=== PATIENT | female | born 1970 | race Caucasian/White ===

== ENCOUNTER 2020-02-04 14:50 | Emergency (ER) | payer BC ==
[2020-02-04] MEDS ORDERED: LIDOCAINE 1% W/ EPINEPHRINE 20 ML VIAL INJ ONE (14:58)
--- NOTE | 2020-02-04 14:59 | ED.PDOC ---
History of Present Illness - General Time Seen by Provider: 02/04/20 14:55 Source: patient Exam Limitations: no limitations - History of Present Illness Initial Comments: Pt says she was helping someone get onto a surf board and the board hit her in the upper lip. Pt had no LOC. Pt denies LUZ, N/V, neck pain. Pt denies numbness, tingling or weakness in face or extremities. Timing/Duration: abrupt Severity: mild, moderate EENT Location: mouth Prearrival Treatment: no prearrival treatment Presenting Symptoms: upper lip pain Worsening Factors: nothing Associated Symptoms: denies symptoms Allergies/Adverse Reactions: Allergies NO KNOWN ALLERGY Allergy (Verified 02/04/20 15:30) Home Medications: Ambulatory Orders Irbesartan 150 mg PO DAILY 02/04/20 Review of Systems - Review of Systems Constitutional: States: no symptoms reported. Denies: diaphoresis, fever, malaise, weakness EENTM: States: mouth pain, mouth swelling. Denies: eye pain, blurred vision, tearing, double vision, ear pain, ear discharge, nose pain, nose congestion, throat pain, throat swelling Respiratory: States: no symptoms reported. Denies: cough, short of breath, stridor, wheezing Cardiology: States: no symptoms reported. Denies: chest pain, palpitations, syncope Genitourinary: States: no symptoms reported Musculoskeletal: States: no symptoms reported Skin: States: no symptoms reported Neurological: States: no symptoms reported Family Medical History - Family History Mother Family History: Unknown Living Status: Unknown Physical Exam - Physical Exam General Appearance: Alert, Comfortable, No apparent distress Eye Exam: bilateral normal Nasal Exam: normal inspection Throat Exam: dental tenderness, other - 1 cm upper lip laceration. Dentition intact. Speech nl, swallowing nl. Neck: non-tender, full range of motion, supple, normal inspection Cardiovascular/Respiratory: regular rate, rhythm, no M/R/G, normal peripheral pulses, no JVD, normal breath sounds, no respiratory distress Neurologic: alert, normal mood/affect, oriented x 3 Progress - Progress Progress: 02/04/20 15:26 Upper lip sutured. Instructions given for suture removal in 5 days. Pt instructed to keep wound moist with petroleum jelly. Pt not from [facility], will arrange for suture removal tomorrow when she's back home. Procedures - Laceration/Wound Repair Upper Face Wound Length (cm): 1 Wound's Depth, Shape: superficial Wound Explored: no foreign body removed Betadine Prep?: No Anesthesia: Lidocaine w/ Epi Volume Anesthetic (cc's): 4 Wound Repaired With: sutures Suture Size/Type: 3:0, vicryl rapide Number of Sutures: 4 Layer Closure?: No Sterile Dressing Applied?: No Splint Applied?: No Sling Applied?: No Departure - Departure Clinical Impression: Laceration of lip Time of Disposition: 15:27 Disposition: Discharge to Home or Self Care Condition: Excellent Departure Forms: ED Discharge - Pt. Copy, Patient Portal Self Enrollment Instructions: DI for Laceration Repair -- Simple Diet: regular diet Home Medications: Ambulatory Orders Irbesartan 150 mg PO DAILY 02/04/20
[2020-02-04] MEDS ORDERED: TETANUS-DIPHTHERIA TOXOIDS (TD 1 EA SYG IM ONE (15:27)
[2020-02-04] MEDS ORDERED: TETANUS,DIPHTHERIA,PERTUSSIS 1 EA SYG IM ONE (15:36)
[2020-02-04 16:23] VITALS: BP 148/100; TEMP 97.3; O2SAT 100
== END 2020-02-04 16:00 | disposition home or self-care (01) ==
LOC: ER 14:50
DX: S01.511A Laceration without foreign body of lip, initial encounter (principal); W22.8XXA Striking against or struck by other objects, initial encounter; Y92.9 Unspecified place or not applicable